=== PATIENT | male | born 1990 | race Caucasian/White ===

== ENCOUNTER 2016-04-11 10:21 | Emergency (ER) | payer MEDICARE, MEDICAID ==
[~2016-04-11] VITALS: Ht 172.7 cm; Wt 77.1 kg
[~2016-04-11 10:21] MED LIST: 'PARAFON FORTE500 M1 PO; ABILIFY15 MG PO; ALPRAZOLAM0.5 M3 PO; AMOXICILLIN500 MG PO; AMOXIL400 MG/5 M PO; AMOXIL500 MG PO; ANAPROX DS550 MG PO; AUGMENTIN 875 M1 TAB PO; AUGMENTIN 875875 MG PO; BACTRIM DS 8001 TA1 PO; BENADRYL50 MG PO; BENTYL20 MG PO; BUSPAR10 MG PO; BUSPAR15 MG PO; CARAFATE1 GM/10 ML PO; CIPROFLOXACIN500 MG PO; CLARITIN; CLARITIN-D 12HR1 T12 PO; CLARITIN10 MG PO; CLINDAMYCIN HC300 MG PO; COGENTIN2 MG PO; CYCLOBENZAPRINE10 MG PO; DARVOCET N 1001 TAB PO; DAYPRO600 M1 PO; DIPHENHYDRAMINE; DOXYCYCLINE100 MG PO; GEODON; HYDROCODONE BIT1 T11 PO; KEFLEX500 MG PO; KETOROLAC10 MG PO; KLONOPIN1 MG PO; LATU40TA1 PO; LATUDA20 MG PO; LIDEX 0.05% CRE15 GM T; LOMOTIL 0.025 M1 TAB PO; MIDRIN (DURADR1 CAP PO; MOBIC; MOBIC15 MG; MOBIC15 MG PO; MOBIC7.5 MG PO; MOTRIN600 MG PO; MOTRIN800 MG PO; NAPROSYN500 MG PO; NEURONTIN300 MG PO; NORCO 325 MG-51 TAB PO; ORPHENADRINE E100 MG PO; PERCOCET 325 MG1 TA2 PO; PERIDEX118 ML MM; PREDNISONE20 M1 PO; PRILOSEC20 M1 PO; PRILOSEC20 M2 PO; PRILOSEC20 MG PO; PROTONIX40 MG PO; ROBAXIN750 MG PO; SEROQUEL100 MG PO; SEROQUEL300 MG PO; STOMACH PILL; TESSALON PERLE200 MG PO; TRAMADOL HCL50 MG PO; TRAZADONE HYDR100 MG PO; TYLENOL WITH CO1 TAB PO; Tobradex 0.3-0.15 ML OPH; ULTRAM50 MG PO; UNSURE OF MEDS; VIBRAMYCIN100 MG PO; VICODIN 5/500 505 MG PO; VOLTAREN50 M1 PO; WELLBUTRIN SR150 MG PO; Wellbutrin Xl150 MG PO; XANAX1 MG PO; ZANTAC150 MG PO; ZITHROMAX Z PA250 MG PO; ZYRTEC ALLERGY10 MG PO; Zofran4 MG PO
[2016-04-11 10:32] VITALS: BP 149/93
== END 2016-04-11 12:13 | disposition home or self-care (01) ==
LOC: ED 10:21
DX: S93.601A Unspecified sprain of right foot, initial encounter (principal); F17.200 Nicotine dependence, unspecified, uncomplicated; Z88.1 Allergy status to other antibiotic agents; Z88.6 Allergy status to analgesic agent; Z88.8 Allergy status to other drugs, medicaments and biological substances; Z79.899 Other long term (current) drug therapy; X58.XXXA Exposure to other specified factors, initial encounter; Y93.89 Activity, other specified; Y92.9 Unspecified place or not applicable; Y99.9 Unspecified external cause status

== ENCOUNTER 2016-07-09 23:08 | Emergency (ER) | payer MEDICARE, MEDICAID ==
[~2016-07-09] VITALS: Ht 175.2 cm; Wt 86.2 kg
[2016-07-09 23:42] VITALS: BP 146/76
[2016-07-10] MEDS ORDERED: ZYRTEC10 MG PO (00:36)
== END 2016-07-10 01:22 | disposition home or self-care (01) ==
LOC: ED 23:08
DX: J02.9 Acute pharyngitis, unspecified (principal); F17.200 Nicotine dependence, unspecified, uncomplicated; Z88.1 Allergy status to other antibiotic agents; Z88.8 Allergy status to other drugs, medicaments and biological substances; Z88.6 Allergy status to analgesic agent

== ENCOUNTER 2016-08-27 21:32 | Emergency (ER) | payer MEDICAID ==
[~2016-08-27] VITALS: Ht 175.2 cm; Wt 90.7 kg
[~2016-08-27 21:32] MED LIST changes: +ZYRTEC10 MG PO
[2016-08-27 21:52] VITALS: BP 135/82
== END 2016-08-27 22:54 | disposition home or self-care (01) ==
LOC: ED 21:32
DX: S06.0X0A Concussion without loss of consciousness, initial encounter (principal); F17.200 Nicotine dependence, unspecified, uncomplicated; Z88.6 Allergy status to analgesic agent; Z88.8 Allergy status to other drugs, medicaments and biological substances; W22.8XXA Striking against or struck by other objects, initial encounter; Y93.89 Activity, other specified; Y92.020 Kitchen in mobile home as the place of occurrence of the external cause; Y99.9 Unspecified external cause status

== ENCOUNTER 2016-11-17 08:07 | Emergency (ER) | payer SELFPAY ==
[~2016-11-17] VITALS: Wt 86.2 kg
[2016-11-17 08:19] VITALS: BP 123/80
[2016-11-17] MEDS ORDERED: NORCO 10-325 T1 EACH PO (11:16)
== END 2016-11-17 11:37 | disposition home or self-care (01) ==
LOC: ED 08:07
DX: S20.222A Contusion of left back wall of thorax, initial encounter (principal); M25.512 Pain in left shoulder; F17.200 Nicotine dependence, unspecified, uncomplicated; Z88.1 Allergy status to other antibiotic agents; Z88.6 Allergy status to analgesic agent; Z88.8 Allergy status to other drugs, medicaments and biological substances; W20.8XXA Other cause of strike by thrown, projected or falling object, initial encounter; Y93.89 Activity, other specified; Y92.89 Other specified places as the place of occurrence of the external cause; Y99.8 Other external cause status

== ENCOUNTER 2017-01-30 19:03 | Emergency (ER) | payer SELFPAY ==
[~2017-01-30] VITALS: Ht 175.2 cm; Wt 90.7 kg
[~2017-01-30 19:03] MED LIST changes: +NORCO 10-325 T1 EACH PO
[2017-01-30 19:08] VITALS: BP 128/84
== END 2017-01-30 20:51 | disposition home or self-care (01) ==
LOC: ED 19:03
DX: S49.81XA Other specified injuries of right shoulder and upper arm, initial encounter (principal); F17.200 Nicotine dependence, unspecified, uncomplicated; Z88.8 Allergy status to other drugs, medicaments and biological substances; Z88.5 Allergy status to narcotic agent; Z79.899 Other long term (current) drug therapy; W19.XXXA Unspecified fall, initial encounter; Y93.89 Activity, other specified; Y92.89 Other specified places as the place of occurrence of the external cause; Y99.8 Other external cause status

== ENCOUNTER 2017-02-07 19:10 | Emergency (ER) | payer SELFPAY ==
[~2017-02-07] VITALS: Ht 175.2 cm; Wt 88.5 kg
[2017-02-07 19:18] VITALS: BP 144/98
== END 2017-02-07 20:51 | disposition left against medical advice (07) ==
LOC: ED 19:10
DX: R07.89 Other chest pain (principal); M54.5 Low back pain; F17.200 Nicotine dependence, unspecified, uncomplicated; Z98.890 Other specified postprocedural states; Z88.8 Allergy status to other drugs, medicaments and biological substances; Z88.1 Allergy status to other antibiotic agents; Z88.6 Allergy status to analgesic agent

== ENCOUNTER 2017-06-27 14:41 | Emergency (ER) | payer OTHER ==
[~2017-06-27] VITALS: Ht 175.2 cm; Wt 90.7 kg
[2017-06-27 14:45] VITALS: BP 133/76
[2017-06-27] MEDS ORDERED: AMOXICILLIN500 M2 PO (14:58)
== END 2017-06-27 16:21 | disposition home or self-care (01) ==
LOC: ED 14:41
DX: K08.89 Other specified disorders of teeth and supporting structures (principal); K02.9 Dental caries, unspecified; Z79.899 Other long term (current) drug therapy; Z98.890 Other specified postprocedural states; Z88.5 Allergy status to narcotic agent; Z88.8 Allergy status to other drugs, medicaments and biological substances; Z88.6 Allergy status to analgesic agent; Z88.1 Allergy status to other antibiotic agents

== ENCOUNTER 2017-07-12 11:50 | Emergency (ER) | payer OTHER ==
[~2017-07-12] VITALS: Ht 175.2 cm; Wt 90.7 kg
[~2017-07-12 11:50] MED LIST changes: +AMOXICILLIN500 M2 PO
[2017-07-12 11:52] VITALS: BP 129/82
[2017-07-12] MEDS ORDERED: CLINDAMYCIN HC300 MG PO (12:05)
== END 2017-07-12 12:34 | disposition home or self-care (01) ==
LOC: ED 11:50
DX: K08.89 Other specified disorders of teeth and supporting structures (principal); K02.9 Dental caries, unspecified; Z98.890 Other specified postprocedural states; Z88.1 Allergy status to other antibiotic agents; Z88.6 Allergy status to analgesic agent; Z88.8 Allergy status to other drugs, medicaments and biological substances

== ENCOUNTER → 2017-07-26 | Outpatient (CLI) | payer OTHER ==
[2017-07-26 11:27] LABS: HEMATOCRIT 48.1 % (42.0-52.0); HEMOGLOBIN 16.4 g/dl (14.0-18.0); MEAN CELL VOLUME 88.4 fl (80.0-94.0); MEAN CORPUSCULAR HGB 30.1 pg (27.0-31.0); MEAN CORPUSCULAR HGB CONC 34.1 g/dl (33.0-37.0); RED BLOOD COUNT 5.44 10*6/uL (4.50-5.90); RED CELL DISTRI WIDTH 12.8 % (0-14.5); WHITE BLOOD COUNT 7.8 10*3/uL (4.8-10.8)
[2017-07-26 11:50] LABS: ALBUMIN 4.2 gm/dl (3.1-4.5); ALKALINE PHOSPHATASE 72 U/L (45-117); BUN 10 mg/dl (7-24); CHLORIDE 108 mmol/L (98-107); CHOLESTEROL 162 mg/dL (<200); CREATININE 0.81 mg/dL (0.70-1.30); HDL CHOLESTEROL 29 mg/dl (40-60); LDL CHOLESTEROL 77 mg/dL (9-159); POTASSIUM 4.5 mmol/L (3.5-5.1); SGOT/AST 22 IU/L (3-35); SGPT/ALT 30 U/L (12-78); SODIUM 141 mmol/L (136-145); TOTAL PROTEIN 7.8 gm/dL (6.4-8.2); TRIGLYCERIDES 279 mg/dl (<150); VLDL CHOLESTEROL 56 mg/dL (6-40)
== END | disposition home or self-care (01) ==
LOC: LAB 10:43
PROVIDERS: Registered Nurse Flight
DX: Z13.220 Encounter for screening for lipoid disorders (principal); M25.561 Pain in right knee; K21.9 Gastro-esophageal reflux disease without esophagitis

== ENCOUNTER → 2018-02-18 | Outpatient (CLI) | payer OTHER | END | disposition home or self-care (01) | LOC: US 11:00 | DX: R10.11 Right upper quadrant pain (principal) ==

== ENCOUNTER 2018-03-22 11:22 | Emergency (ER) | payer OTHER ==
[~2018-03-22] VITALS: Ht 175.2 cm; Wt 96.2 kg
[2018-03-22 11:23] VITALS: BP 146/95
[2018-03-22] MEDS ORDERED: PRILOSEC20 M1 PO (11:26)
[2018-03-22] MEDS ORDERED: HORIZANT600 M1 PO (11:26)
[2018-03-22] MEDS ORDERED: BENTYL PO (11:27)
== END 2018-03-22 13:13 | disposition home or self-care (01) ==
LOC: ED 11:22
DX: S93.401A Sprain of unspecified ligament of right ankle, initial encounter (principal); S83.91XA Sprain of unspecified site of right knee, initial encounter; R03.0 Elevated blood-pressure reading, without diagnosis of hypertension; Z88.8 Allergy status to other drugs, medicaments and biological substances; Z88.6 Allergy status to analgesic agent; Z79.899 Other long term (current) drug therapy; X50.1XXA Overexertion from prolonged static or awkward postures, initial encounter; Y93.89 Activity, other specified; Y92.89 Other specified places as the place of occurrence of the external cause; Y99.8 Other external cause status

== ENCOUNTER 2018-04-30 19:42 | Emergency (ER) | payer OTHER ==
[~2018-04-30] VITALS: Ht 175.2 cm; Wt 97.1 kg
[~2018-04-30 19:42] MED LIST changes: +BENTYL PO; +HORIZANT600 M1 PO
[2018-04-30 19:45] VITALS: BP 133/90
[2018-04-30] MEDS ORDERED: CLINDAMYCIN150 MG PO (20:12)
== END 2018-04-30 20:43 | disposition home or self-care (01) ==
LOC: ED 19:42
DX: K02.9 Dental caries, unspecified (principal); Z79.899 Other long term (current) drug therapy; Z88.6 Allergy status to analgesic agent

== ENCOUNTER 2018-05-10 20:48 | Emergency (ER) | payer OTHER ==
[~2018-05-10] VITALS: Ht 175.2 cm; Wt 97.1 kg
[~2018-05-10 20:48] MED LIST changes: +CLINDAMYCIN150 MG PO
[2018-05-10 20:50] VITALS: BP 129/85
[2018-05-10] MEDS ORDERED: GABAPENTIN600 MG PO (20:56)
[2018-05-10] MEDS ORDERED: CLEOCIN150 MG PO (20:57)
[2018-05-10] MEDS ORDERED: ALPRAZOLAM0.5 M3 PO (20:58)
[2018-05-10] MEDS ORDERED: BUPROPION HCL150 M1 PO (20:59)
[2018-05-10] MEDS ORDERED: PROAIR HFA8.5 GM INH (20:59)
[2018-05-10] MEDS ORDERED: AMOXICILLIN500 M2 PO (21:47)
[2018-05-10] MEDS ORDERED: FLONASE ALLERG9.9 ML NAS (21:47)
[2018-05-10] MEDS ORDERED: TESSALON PERLE100 M1 PO (21:47)
== END 2018-05-10 21:55 | disposition home or self-care (01) ==
LOC: ED 20:48
DX: J32.9 Chronic sinusitis, unspecified (principal); F17.200 Nicotine dependence, unspecified, uncomplicated; Z88.8 Allergy status to other drugs, medicaments and biological substances; Z88.6 Allergy status to analgesic agent; Z79.2 Long term (current) use of antibiotics; Z79.899 Other long term (current) drug therapy

== ENCOUNTER 2018-05-19 12:33 | Emergency (ER) | payer OTHER ==
[~2018-05-19] VITALS: Ht 175.2 cm; Wt 99.3 kg
[~2018-05-19 12:33] MED LIST changes: +BUPROPION HCL150 M1 PO; +CLEOCIN150 MG PO; +FLONASE ALLERG9.9 ML NAS; +GABAPENTIN600 MG PO; +PROAIR HFA8.5 GM INH; +TESSALON PERLE100 M1 PO
[2018-05-19 12:36] VITALS: BP 133/83
[2018-05-19] MEDS ORDERED: Motrin,Rufen800 MG PO (14:31)
== END 2018-05-19 14:52 | disposition home or self-care (01) ==
LOC: ED 12:33
DX: S16.1XXA Strain of muscle, fascia and tendon at neck level, initial encounter (principal); S00.83XA Contusion of other part of head, initial encounter; Z88.1 Allergy status to other antibiotic agents; Z88.6 Allergy status to analgesic agent; Z88.8 Allergy status to other drugs, medicaments and biological substances; Z79.899 Other long term (current) drug therapy; W20.8XXA Other cause of strike by thrown, projected or falling object, initial encounter; Y93.89 Activity, other specified; Y92.89 Other specified places as the place of occurrence of the external cause; Y99.8 Other external cause status

== ENCOUNTER 2018-05-27 10:44 | Emergency (ER) | payer OTHER ==
[~2018-05-27] VITALS: Ht 175.2 cm; Wt 94.8 kg
[~2018-05-27 10:44] MED LIST changes: +Motrin,Rufen800 MG PO
[2018-05-27 11:25] LABS: BASO % 0.4 % (0.0-1.0); EOS # 0.1 10*3/uL (0.0-0.4); EOS % 1.4 % (1.0-4.0); HEMATOCRIT 53.4 % (42.0-52.0); HEMOGLOBIN 18.7 g/dl (14.0-18.0); LYMPH # 0.9 10*3/uL (1.3-4.4); LYMPH % 8.9 % (27.0-41.0); MEAN CELL VOLUME 88.3 fl (80.0-94.0); MEAN CORPUSCULAR HGB 30.9 pg (27.0-31.0); MONO # 0.7 10*3/uL (0.1-1.0); MONO % 7.1 % (3.0-9.0); NEUT # 8.4 10*3/uL (2.3-7.9); NEUT % 81.7 % (47.0-73.0); PLATELET COUNT AUTOMATED 173 10*3/uL (130-400); RED BLOOD COUNT 6.05 10*6/uL (4.50-5.90); RED CELL DISTRI WIDTH 12.4 % (0-14.5); WHITE BLOOD COUNT 10.2 10*3/uL (4.8-10.8)
[2018-05-27 11:49] LABS: ALBUMIN 4.2 gm/dl (3.1-4.5); ALKALINE PHOSPHATASE 113 U/L (45-117); BUN 17 mg/dl (7-24); CHLORIDE 106 mmol/L (98-107); CREATININE 0.99 mg/dL (0.70-1.30); LIPASE 157 U/L (73-393); POTASSIUM 4.5 mmol/L (3.5-5.1); SGOT/AST 13 IU/L (3-35); SGPT/ALT 31 U/L (12-78); SODIUM 141 mmol/L (136-145); TOTAL PROTEIN 8.5 gm/dL (6.4-8.2)
[2018-05-27 12:50] LABS: BILIRUBIN NEGATIVE (NEGATIVE); BLOOD NEGATIVE (NEGATIVE); CLARITY CLEAR (CLEAR); COLOR YELLOW (YELLOW); GLUCOSE NEGATIVE (NEGATIVE); KETONE NEGATIVE (NEGATIVE); LEUKO ESTERASE NEGATIVE (NEGATIVE); NITRITE NEGATIVE (NEGATIVE); SPECIFIC GRAVITY 1.015 (1.005-1.030); UROBILINOGEN 0.2 E.U./dl (0.2-1.0)
[2018-05-27 13:00] VITALS: BP 122/76
[2018-05-27 13:24] LABS: MUCOUS 1+
[2018-05-27] MEDS ORDERED: ZOFRAN4 MG PO (13:33)
== END 2018-05-27 13:45 | disposition home or self-care (01) ==
LOC: ED 10:44
PROVIDERS: Nurse Practitioner Family
DX: K29.70 Gastritis, unspecified, without bleeding (principal); Z88.8 Allergy status to other drugs, medicaments and biological substances; Z88.6 Allergy status to analgesic agent; Z79.2 Long term (current) use of antibiotics; Z79.899 Other long term (current) drug therapy

== ENCOUNTER 2018-06-27 12:06 | Emergency (ER) | payer OTHER ==
[~2018-06-27] VITALS: Ht 175.2 cm; Wt 95.3 kg
[~2018-06-27 12:06] MED LIST changes: +ZOFRAN4 MG PO
[2018-06-27 12:07] VITALS: BP 118/83
[2018-06-27] MEDS ORDERED: NAPROSYN500 MG PO (14:02)
== END 2018-06-27 14:10 | disposition home or self-care (01) ==
LOC: ED 12:06
DX: S92.331A Displaced fracture of third metatarsal bone, right foot, initial encounter for closed fracture (principal); S92.341A Displaced fracture of fourth metatarsal bone, right foot, initial encounter for closed fracture; F17.200 Nicotine dependence, unspecified, uncomplicated; Z88.8 Allergy status to other drugs, medicaments and biological substances; Z88.6 Allergy status to analgesic agent; Z79.2 Long term (current) use of antibiotics; Z79.899 Other long term (current) drug therapy; W07.XXXA Fall from chair, initial encounter; Y93.89 Activity, other specified; Y92.89 Other specified places as the place of occurrence of the external cause; Y99.8 Other external cause status

== ENCOUNTER 2018-07-10 11:04 | Emergency (ER) | payer OTHER ==
[~2018-07-10] VITALS: Ht 175.2 cm; Wt 90.7 kg
[2018-07-10 11:05] VITALS: BP 141/89
[2018-07-10] MEDS ORDERED: ZYRTEC10 MG PO (11:57)
[2018-07-10] MEDS ORDERED: PREDNISONE50 MG PO (11:57)
[2018-07-10] MEDS ORDERED: FLONASE ALLERG9.9 ML NAS (11:57)
== END 2018-07-10 12:10 | disposition home or self-care (01) ==
LOC: ED 11:04
DX: J06.9 Acute upper respiratory infection, unspecified (principal); J02.9 Acute pharyngitis, unspecified; H92.03 Otalgia, bilateral; F17.200 Nicotine dependence, unspecified, uncomplicated; Z88.8 Allergy status to other drugs, medicaments and biological substances; Z88.6 Allergy status to analgesic agent; Z79.899 Other long term (current) drug therapy; Z79.2 Long term (current) use of antibiotics

== ENCOUNTER → 2018-11-04 | Outpatient (CLI) | payer OTHER ==
[~2018-11-04] MED LIST changes: +PREDNISONE50 MG PO
[2018-11-04 09:13] LABS: HEMATOCRIT 47.3 % (42.0-52.0); MEAN CELL VOLUME 89.8 fl (80.0-94.0); MEAN CORPUSCULAR HGB 30.4 pg (27.0-31.0); MEAN CORPUSCULAR HGB CONC 33.8 g/dl (33.0-37.0); MEAN PLATELET VOLUME 9.5 fl (9.6-12.3); RED BLOOD COUNT 5.27 10*6/uL (4.50-5.90); RED CELL DISTRI WIDTH 12.7 % (0-14.5); WHITE BLOOD COUNT 8.6 10*3/uL (4.8-10.8)
[2018-11-04 09:42] LABS: CHLORIDE 112 mmol/L (98-107); POTASSIUM 4.8 mmol/L (3.5-5.1); SODIUM 144 mmol/L (136-145)
[2018-11-04 09:59] LABS: ALBUMIN 3.9 gm/dl (3.1-4.5); ALKALINE PHOSPHATASE 105 U/L (45-117); BUN 14 mg/dl (7-24); CREATININE 0.77 mg/dL (0.70-1.30); SGOT/AST 17 IU/L (3-35); SGPT/ALT 28 U/L (12-78); TOTAL PROTEIN 7.4 gm/dL (6.4-8.2)
== END | disposition home or self-care (01) ==
LOC: LAB 08:36
PROVIDERS: Registered Nurse Flight
DX: G62.9 Polyneuropathy, unspecified (principal)

== ENCOUNTER 2019-04-10 19:11 | Emergency (ER) | payer OTHER ==
[~2019-04-10] VITALS: Ht 175.2 cm; Wt 90.7 kg
[2019-04-10 19:24] VITALS: BP 113/83
[2019-04-10] MEDS ORDERED: OMEPRAZOLE MAGN20 MG PO (21:28)
[2019-04-10] MEDS ORDERED: GABAPENTIN800 MG PO (21:28)
[2019-04-10] MEDS ORDERED: DICYCLOMINE HCL20 MG PO (21:29)
== END 2019-04-10 23:37 | disposition left against medical advice (07) ==
LOC: ED 19:11
DX: R50.9 Fever, unspecified (principal); R19.7 Diarrhea, unspecified; R10.9 Unspecified abdominal pain; Z53.29 Procedure and treatment not carried out because of patient's decision for other reasons; Z88.8 Allergy status to other drugs, medicaments and biological substances; Z88.6 Allergy status to analgesic agent; Z79.899 Other long term (current) drug therapy

== ENCOUNTER 2019-05-14 21:09 | Emergency (ER) | payer OTHER ==
[~2019-05-14] VITALS: Ht 175.2 cm; Wt 9.5 kg
[~2019-05-14 21:09] MED LIST changes: +DICYCLOMINE HCL20 MG PO; +GABAPENTIN800 MG PO; +OMEPRAZOLE MAGN20 MG PO
[2019-05-14 21:11] VITALS: BP 132/75
== END 2019-05-14 21:42 | disposition home or self-care (01) ==
LOC: ED 21:09
DX: S00.93XA Contusion of unspecified part of head, initial encounter (principal); S00.01XA Abrasion of scalp, initial encounter; R42 Dizziness and giddiness; K21.9 Gastro-esophageal reflux disease without esophagitis; J45.909 Unspecified asthma, uncomplicated; Z88.8 Allergy status to other drugs, medicaments and biological substances; Z79.899 Other long term (current) drug therapy; V48.5XXA Car driver injured in noncollision transport accident in traffic accident, initial encounter; Y93.I9 Activity, other involving external motion; Y92.488 Other paved roadways as the place of occurrence of the external cause; Y99.8 Other external cause status

== ENCOUNTER 2020-02-20 07:29 | Emergency (ER) | payer OTHER ==
[~2020-02-20] VITALS: Ht 175.2 cm; Wt 68.0 kg
[2020-02-20 07:59] LABS: BASO # 0.1 10*3/uL (0.0-0.1); BASO % 0.4 % (0.0-1.0); EOS # 0.1 10*3/uL (0.0-0.4); EOS % 0.4 % (1.0-4.0); HEMATOCRIT 51.8 % (42.0-52.0); LYMPH # 2.4 10*3/uL (1.3-4.4); LYMPH % 17.2 % (27.0-41.0); MEAN CELL VOLUME 91.2 fl (80.0-94.0); MEAN CORPUSCULAR HGB 29.4 pg (27.0-31.0); MEAN CORPUSCULAR HGB CONC 32.2 g/dl (33.0-37.0); MEAN PLATELET VOLUME 9.8 fl (9.6-12.3); MONO # 0.6 10*3/uL (0.1-1.0); MONO % 4.1 % (3.0-9.0); NEUT # 10.6 10*3/uL (2.3-7.9); NEUT % 77.2 % (47.0-73.0); PLATELET COUNT AUTOMATED 201 10*3/uL (130-400); RED BLOOD COUNT 5.68 10*6/uL (4.50-5.90); RED CELL DISTRI WIDTH 12.7 % (0-14.5); WHITE BLOOD COUNT 13.7 10*3/uL (4.8-10.8)
[2020-02-20 08:23] VITALS: BP 120/60
[2020-02-20 08:35] LABS: URINE AMPHETAMINES < 1000 (1000ng/ml); URINE BARBITURATES < 200 (200ng/ml); URINE BENZODIAZEPINES > 200 (200ng/ml); URINE CANNABINOIDS (THC) > 50 (50ng/ml); URINE COCAINE < 300 (300ng/ml); URINE METHADONE < 300 (300ng/ml); URINE OPIATES < 300 (300ng/ml)
[2020-02-20 08:39] LABS: URINE PHENCYCLIDINE < 25 (25ng/ml)
[2020-02-20 09:26] LABS: ALBUMIN 3.9 gm/dl (3.1-4.5); ALKALINE PHOSPHATASE 83 U/L (45-117); BUN 10 mg/dl (7-24); CHLORIDE 113 mmol/L (98-107); CREATININE 1.05 mg/dL (0.70-1.30); POTASSIUM 3.7 mmol/L (3.5-5.1); SGOT/AST 17 IU/L (3-35); SGPT/ALT 27 U/L (12-78); SODIUM 146 mmol/L (136-145); TOTAL PROTEIN 7.1 gm/dL (6.4-8.2)
[2020-02-20 09:30] LABS: ETHYL ALCOHOL < 3.0 mg/dl (<3)
== END 2020-02-20 09:08 | disposition short-term general hospital (02) ==
LOC: ED 07:29
PROVIDERS: Emergency Medicine
DX: T65.91XA Toxic effect of unspecified substance, accidental (unintentional), initial encounter (principal); Z88.8 Allergy status to other drugs, medicaments and biological substances; Z79.899 Other long term (current) drug therapy; Y92.89 Other specified places as the place of occurrence of the external cause

== ENCOUNTER 2020-09-25 10:07 | Emergency (ER) | payer OTHER ==
[~2020-09-25] VITALS: Ht 175 cm; Wt 97.5 kg
[2020-09-25 10:13] VITALS: BP 136/90
[2020-09-25] MEDS ORDERED: CYCLOBENZAPRINE10 MG PO (10:56)
[2020-09-25] MEDS ORDERED: TYLENOL325 M1 PO (10:56)
[2020-09-25] MEDS ORDERED: ARTHRITIS PAI42.5 GM T (10:56)
== END 2020-09-25 10:58 | disposition home or self-care (01) ==
LOC: ED 10:07
DX: S39.012A Strain of muscle, fascia and tendon of lower back, initial encounter (principal); R10.12 Left upper quadrant pain; F41.9 Anxiety disorder, unspecified; F32.9 Major depressive disorder, single episode, unspecified; J45.909 Unspecified asthma, uncomplicated; K21.9 Gastro-esophageal reflux disease without esophagitis; Z88.8 Allergy status to other drugs, medicaments and biological substances; Z79.899 Other long term (current) drug therapy; Z98.890 Other specified postprocedural states; X58.XXXA Exposure to other specified factors, initial encounter; Y93.89 Activity, other specified; Y92.89 Other specified places as the place of occurrence of the external cause; Y99.8 Other external cause status

== ENCOUNTER 2020-11-29 17:57 | Emergency (ER) | payer OTHER ==
[~2020-11-29] VITALS: Ht 175.2 cm; Wt 97.5 kg
[~2020-11-29 17:57] MED LIST changes: +ARTHRITIS PAI42.5 GM T; +TYLENOL325 M1 PO
[2020-11-29 18:17] VITALS: BP 133/89
[2020-11-29] MEDS ORDERED: KENALOG 0.025%15 GM T (20:01)
== END 2020-11-29 20:04 | disposition home or self-care (01) ==
LOC: ED 17:57
DX: L25.9 Unspecified contact dermatitis, unspecified cause (principal); F17.200 Nicotine dependence, unspecified, uncomplicated; Z88.8 Allergy status to other drugs, medicaments and biological substances; Z88.6 Allergy status to analgesic agent; Z79.899 Other long term (current) drug therapy; Z79.2 Long term (current) use of antibiotics

== ENCOUNTER 2021-01-08 12:40 | Emergency (ER) | payer OTHER ==
[~2021-01-08] VITALS: Ht 175.2 cm; Wt 97.5 kg
[~2021-01-08 12:40] MED LIST changes: +KENALOG 0.025%15 GM T
[2021-01-08 13:08] VITALS: BP 136/97
== END 2021-01-08 14:20 | disposition left against medical advice (07) ==
LOC: ED 12:40
DX: M79.671 Pain in right foot (principal); Z53.21 Procedure and treatment not carried out due to patient leaving prior to being seen by health care provider

== ENCOUNTER 2021-02-27 10:36 | Emergency (ER) | payer OTHER ==
[~2021-02-27] VITALS: Ht 175.2 cm; Wt 95.3 kg
[2021-02-27 10:56] VITALS: BP 129/89
[2021-02-27] MEDS ORDERED: MEDROL DOSEPAK4 MG PO (13:07)
== END 2021-02-27 13:25 | disposition home or self-care (01) ==
LOC: ED 10:36
DX: S20.221A Contusion of right back wall of thorax, initial encounter (principal); Z88.6 Allergy status to analgesic agent; Z79.899 Other long term (current) drug therapy; W22.8XXA Striking against or struck by other objects, initial encounter; Y93.89 Activity, other specified; Y92.89 Other specified places as the place of occurrence of the external cause; Y99.8 Other external cause status

== ENCOUNTER 2021-05-19 07:45 | Emergency (ER) | payer OTHER ==
[~2021-05-19] VITALS: Wt 95.3 kg
[~2021-05-19 07:45] MED LIST changes: +MEDROL DOSEPAK4 MG PO
[2021-05-19 07:55] VITALS: BP 144/102
[2021-05-19] MEDS ORDERED: GENTACIDIN5 ML NAS (08:22)
[2021-05-19] MEDS ORDERED: TERBINAFINE15 GM T (08:24)
== END 2021-05-19 09:02 | disposition home or self-care (01) ==
LOC: ED 07:45
DX: H10.32 Unspecified acute conjunctivitis, left eye (principal); B35.4 Tinea corporis; Z88.1 Allergy status to other antibiotic agents; Z88.8 Allergy status to other drugs, medicaments and biological substances; Z88.6 Allergy status to analgesic agent; Z79.899 Other long term (current) drug therapy; Z98.890 Other specified postprocedural states

== ENCOUNTER 2021-09-09 19:55 | Emergency (ER) | payer OTHER ==
[~2021-09-09] VITALS: Wt 90.7 kg
[~2021-09-09 19:55] MED LIST changes: +GENTACIDIN5 ML NAS; +TERBINAFINE15 GM T
[2021-09-09 20:43] VITALS: BP 133/84
== END 2021-09-09 22:37 | disposition home or self-care (01) ==
LOC: ED 19:55
DX: T50.901A Poisoning by unspecified drugs, medicaments and biological substances, accidental (unintentional), initial encounter (principal); Y92.89 Other specified places as the place of occurrence of the external cause

== ENCOUNTER 2021-12-24 13:48 | Emergency (ER) | payer OTHER ==
[~2021-12-24] VITALS: Ht 175.2 cm; Wt 86.2 kg
[2021-12-24 13:55] VITALS: BP 127/64
[2021-12-24 14:42] LABS: BASO # 0.1 10*3/uL (0.0-0.1); BASO % 0.8 % (0.0-1.0); EOS # 0.1 10*3/uL (0.0-0.4); EOS % 1.5 % (1.0-4.0); HEMATOCRIT 43.8 % (42.0-52.0); LYMPH # 2.2 10*3/uL (1.3-4.4); LYMPH % 26.9 % (27.0-41.0); MEAN CORPUSCULAR HGB 30.9 pg (27.0-31.0); MEAN CORPUSCULAR HGB CONC 34.7 g/dl (33.0-37.0); MEAN PLATELET VOLUME 9.6 fl (9.6-12.3); MONO # 0.5 10*3/uL (0.1-1.0); MONO % 5.9 % (3.0-9.0); NEUT # 5.2 10*3/uL (2.3-7.9); NEUT % 64.6 % (47.0-73.0); PLATELET COUNT AUTOMATED 182 10*3/uL (130-400); RED BLOOD COUNT 4.92 10*6/uL (4.50-5.90)
[2021-12-24 14:46] LABS: ALKALINE PHOSPHATASE 88 U/L (45-117); BUN 12 mg/dl (7-24); CHLORIDE 109 mmol/L (98-107); CREATININE 0.88 mg/dL (0.70-1.30); POTASSIUM 4.2 mmol/L (3.5-5.1); SGOT/AST 14 IU/L (3-35); SGPT/ALT 31 U/L (12-78); SODIUM 140 mmol/L (136-145); TOTAL PROTEIN 6.9 gm/dL (6.4-8.2)
[2021-12-24] MEDS ORDERED: DOXYCYCLINE HY100 M3 PO (15:12)
== END 2021-12-24 15:17 | disposition home or self-care (01) ==
LOC: ED 13:48
PROVIDERS: Nurse Practitioner Family
DX: L03.116 Cellulitis of left lower limb (principal); F17.200 Nicotine dependence, unspecified, uncomplicated; Z98.890 Other specified postprocedural states; Z90.89 Acquired absence of other organs; Z79.899 Other long term (current) drug therapy; Z88.8 Allergy status to other drugs, medicaments and biological substances; Z88.1 Allergy status to other antibiotic agents

== ENCOUNTER 2022-02-03 11:40 | Emergency (ER) | payer OTHER ==
[~2022-02-03] VITALS: Ht 175.2 cm; Wt 89.8 kg
[~2022-02-03 11:40] MED LIST changes: +DOXYCYCLINE HY100 M3 PO
[2022-02-03 11:46] VITALS: BP 140/96
== END 2022-02-03 13:38 | disposition home or self-care (01) ==
LOC: ED 11:40
DX: S05.02XA Injury of conjunctiva and corneal abrasion without foreign body, left eye, initial encounter (principal); Z88.8 Allergy status to other drugs, medicaments and biological substances; Z88.6 Allergy status to analgesic agent; Z79.899 Other long term (current) drug therapy; Z90.89 Acquired absence of other organs; Z98.890 Other specified postprocedural states; W22.8XXA Striking against or struck by other objects, initial encounter; Y93.89 Activity, other specified; Y92.89 Other specified places as the place of occurrence of the external cause; Y99.8 Other external cause status

== ENCOUNTER 2022-02-21 19:06 | Emergency (ER) | payer OTHER ==
[~2022-02-21] VITALS: Ht 175.2 cm; Wt 89.8 kg
[2022-02-21 19:18] VITALS: BP 130/96
== END 2022-02-21 20:22 | disposition home or self-care (01) ==
LOC: ED 19:06
DX: Z53.21 Procedure and treatment not carried out due to patient leaving prior to being seen by health care provider (principal)

== ENCOUNTER → 2022-05-09 | Outpatient (CLI) | payer OTHER | END | disposition home or self-care (01) | LOC: CT 10:59 | PROVIDERS: ATTEND Podiatrist Foot & Ankle Surgery | DX: S93.324A Dislocation of tarsometatarsal joint of right foot, initial encounter (principal); M19.071 Primary osteoarthritis, right ankle and foot; Z98.890 Other specified postprocedural states; X58.XXXA Exposure to other specified factors, initial encounter; Y93.89 Activity, other specified; Y92.89 Other specified places as the place of occurrence of the external cause; Y99.8 Other external cause status ==

== ENCOUNTER → 2022-08-30 | Day surgery (SDC) | payer OTHER ==
[2022-08-25 12:59] VITALS: BP 133/84
[~2022-08-30] VITALS: Ht 152.4 cm; Wt 99.8 kg
[~2022-08-30] MED LIST changes: +DOXYCYCLINE HY150 M2 PO; +NEURONTIN400 MG PO; +OXYCODON-ACETA1 EACH PO; +WELLBUTRIN XL150 MG PO; +XARELTO10 MG PO
[2022-08-30 07:45] VITALS: BP 140/76
[2022-08-30 10:05] VITALS: BP 131/101
[2022-08-30 10:20] VITALS: BP 132/90
[2022-08-30 10:35] VITALS: BP 127/82
[2022-08-30 10:50] VITALS: BP 122/75
[2022-08-30 11:05] VITALS: BP 125/72
[2022-08-31 11:08] LABS: ACID FAST SPEC PROCESSING Tissue Grinding (.)
[2022-08-31 11:08] LABS: ACID FAST SPEC PROCESSING Tissue Grinding (.)
== END ==
LOC: SDC 08-25 12:30
PROVIDERS: Podiatrist; ATTEND Podiatrist Foot & Ankle Surgery
DX: Z45.89 Encounter for adjustment and management of other implanted devices (principal); T84.84XA Pain due to internal orthopedic prosthetic devices, implants and grafts, initial encounter; G57.31 Lesion of lateral popliteal nerve, right lower limb; E66.9 Obesity, unspecified; F32.A Depression, unspecified; F41.9 Anxiety disorder, unspecified; K44.9 Diaphragmatic hernia without obstruction or gangrene; J45.909 Unspecified asthma, uncomplicated; F17.210 Nicotine dependence, cigarettes, uncomplicated; Z98.890 Other specified postprocedural states; Z96.698 Presence of other orthopedic joint implants; Z68.32 Body mass index [BMI] 32.0-32.9, adult; X58.XXXA Exposure to other specified factors, initial encounter

== ENCOUNTER → 2022-09-07 | Outpatient (CLI) | payer OTHER | END | disposition home or self-care (01) | LOC: US 09:00 | PROVIDERS: ATTEND Podiatrist Foot & Ankle Surgery | DX: I82.401 Acute embolism and thrombosis of unspecified deep veins of right lower extremity (principal); M79.89 Other specified soft tissue disorders ==

== ENCOUNTER → 2022-09-19 | Outpatient (CLI) | payer OTHER | LOC: WOUNDCARE 01:36 | PROVIDERS: ATTEND Nurse Practitioner Primary Care | DX: T81.89XA Other complications of procedures, not elsewhere classified, initial encounter (principal); L97.512 Non-pressure chronic ulcer of other part of right foot with fat layer exposed; M79.671 Pain in right foot; M86.671 Other chronic osteomyelitis, right ankle and foot; M86.171 Other acute osteomyelitis, right ankle and foot; F17.200 Nicotine dependence, unspecified, uncomplicated; Y92.238 Other place in hospital as the place of occurrence of the external cause; Y83.8 Other surgical procedures as the cause of abnormal reaction of the patient, or of later complication, without mention of misadventure at the time of the procedure ==

== ENCOUNTER → 2022-09-26 | Outpatient (CLI) | payer OTHER | END | disposition home or self-care (01) | LOC: WOUNDCARE 00:59 | PROVIDERS: ATTEND Nurse Practitioner Primary Care | DX: T81.89XD Other complications of procedures, not elsewhere classified, subsequent encounter (principal); L97.512 Non-pressure chronic ulcer of other part of right foot with fat layer exposed; M79.671 Pain in right foot; M86.671 Other chronic osteomyelitis, right ankle and foot; M86.171 Other acute osteomyelitis, right ankle and foot; F17.200 Nicotine dependence, unspecified, uncomplicated; Y83.8 Other surgical procedures as the cause of abnormal reaction of the patient, or of later complication, without mention of misadventure at the time of the procedure ==

== ENCOUNTER → 2022-10-05 | Outpatient (CLI) | payer OTHER | END | disposition home or self-care (01) | LOC: WOUNDCARE 02:11 | PROVIDERS: ATTEND Nurse Practitioner Family | DX: T81.89XD Other complications of procedures, not elsewhere classified, subsequent encounter (principal); L97.512 Non-pressure chronic ulcer of other part of right foot with fat layer exposed; M86.671 Other chronic osteomyelitis, right ankle and foot; M86.171 Other acute osteomyelitis, right ankle and foot; M79.671 Pain in right foot; F17.200 Nicotine dependence, unspecified, uncomplicated; Y83.8 Other surgical procedures as the cause of abnormal reaction of the patient, or of later complication, without mention of misadventure at the time of the procedure ==

== ENCOUNTER → 2022-10-11 | Outpatient (CLI) | payer OTHER | END | disposition home or self-care (01) | LOC: RAD 14:42 | PROVIDERS: ATTEND Nurse Practitioner Family | DX: M77.31 Calcaneal spur, right foot (principal) ==

== ENCOUNTER → 2022-10-12 | Outpatient (CLI) | payer OTHER | END | disposition home or self-care (01) | LOC: WOUNDCARE 00:45 | PROVIDERS: ATTEND Nurse Practitioner Family | DX: T81.89XD Other complications of procedures, not elsewhere classified, subsequent encounter (principal); L97.512 Non-pressure chronic ulcer of other part of right foot with fat layer exposed; M86.671 Other chronic osteomyelitis, right ankle and foot; M79.671 Pain in right foot; F17.200 Nicotine dependence, unspecified, uncomplicated; Y83.8 Other surgical procedures as the cause of abnormal reaction of the patient, or of later complication, without mention of misadventure at the time of the procedure ==

== ENCOUNTER → 2022-10-26 | Outpatient (CLI) | payer OTHER | END | disposition home or self-care (01) | LOC: WOUNDCARE 02:21 | PROVIDERS: ATTEND Nurse Practitioner Family | DX: T81.89XD Other complications of procedures, not elsewhere classified, subsequent encounter (principal); L97.512 Non-pressure chronic ulcer of other part of right foot with fat layer exposed; M86.671 Other chronic osteomyelitis, right ankle and foot; M86.171 Other acute osteomyelitis, right ankle and foot; M79.671 Pain in right foot; F17.200 Nicotine dependence, unspecified, uncomplicated; Y83.8 Other surgical procedures as the cause of abnormal reaction of the patient, or of later complication, without mention of misadventure at the time of the procedure ==

== ENCOUNTER → 2022-11-03 | Outpatient (CLI) | payer OTHER | END | disposition home or self-care (01) | LOC: WOUNDCARE 01:45 | PROVIDERS: ATTEND Nurse Practitioner Family | DX: T81.89XD Other complications of procedures, not elsewhere classified, subsequent encounter (principal); L97.512 Non-pressure chronic ulcer of other part of right foot with fat layer exposed; M86.671 Other chronic osteomyelitis, right ankle and foot; M86.171 Other acute osteomyelitis, right ankle and foot; M79.671 Pain in right foot; F17.200 Nicotine dependence, unspecified, uncomplicated; Y83.8 Other surgical procedures as the cause of abnormal reaction of the patient, or of later complication, without mention of misadventure at the time of the procedure ==

== ENCOUNTER → 2022-11-14 | Outpatient (CLI) | payer OTHER | END | disposition home or self-care (01) | LOC: WOUNDCARE 01:10 | PROVIDERS: ATTEND Nurse Practitioner Family | DX: T81.89XD Other complications of procedures, not elsewhere classified, subsequent encounter (principal); L97.512 Non-pressure chronic ulcer of other part of right foot with fat layer exposed; M86.671 Other chronic osteomyelitis, right ankle and foot; M86.171 Other acute osteomyelitis, right ankle and foot; M79.671 Pain in right foot; F17.200 Nicotine dependence, unspecified, uncomplicated; Y83.8 Other surgical procedures as the cause of abnormal reaction of the patient, or of later complication, without mention of misadventure at the time of the procedure ==

== ENCOUNTER 2023-01-29 17:44 | Emergency (ER) | payer OTHER ==
[~2023-01-29] VITALS: Wt 93.0 kg
[2023-01-29 18:18] VITALS: BP 119/81
[2023-01-29] MEDS ORDERED: CORTIZONE-10 PL28 GM T (19:03)
[2023-01-29] MEDS ORDERED: BENADRYL ALLERG25 M5 PO (19:03)
== END 2023-01-29 18:54 | disposition home or self-care (01) ==
LOC: ED 17:44
DX: L23.7 Allergic contact dermatitis due to plants, except food (principal); F41.9 Anxiety disorder, unspecified; J45.909 Unspecified asthma, uncomplicated; K21.9 Gastro-esophageal reflux disease without esophagitis; Z87.442 Personal history of urinary calculi; F31.9 Bipolar disorder, unspecified; Z88.8 Allergy status to other drugs, medicaments and biological substances; Z88.6 Allergy status to analgesic agent; Z98.890 Other specified postprocedural states

== ENCOUNTER 2023-10-28 11:49 | Emergency (ER) | payer OTHER ==
[~2023-10-28] VITALS: Ht 180.3 cm; Wt 88.5 kg
[~2023-10-28 11:49] MED LIST changes: +BENADRYL ALLERG25 M5 PO; +CORTIZONE-10 PL28 GM T
[2023-10-28 11:56] VITALS: BP 123/82
[2023-10-28] MEDS ORDERED: AMOX-CLAV 875-1 EACH PO (12:14)
[2023-10-28] MEDS ORDERED: Amoxicillin/Clavulanate Pota 875 MG TAB PO ONE (12:20)
== END 2023-10-28 12:50 | disposition home or self-care (01) ==
LOC: ED 11:49
DX: H66.93 Otitis media, unspecified, bilateral (principal); J02.9 Acute pharyngitis, unspecified; F41.9 Anxiety disorder, unspecified; J45.909 Unspecified asthma, uncomplicated; K21.9 Gastro-esophageal reflux disease without esophagitis; F31.9 Bipolar disorder, unspecified; Z87.442 Personal history of urinary calculi; Z88.8 Allergy status to other drugs, medicaments and biological substances; Z88.6 Allergy status to analgesic agent; Z98.890 Other specified postprocedural states

== ENCOUNTER 2024-03-20 16:31 | Emergency (ER) | payer OTHER ==
[~2024-03-20] VITALS: Ht 180.3 cm; Wt 99.8 kg
[~2024-03-20 16:31] MED LIST changes: +AMOX-CLAV 875-1 EACH PO
[2024-03-20 16:49] VITALS: BP 149/97
[2024-03-20] MEDS ORDERED: AMOXICILLIN 500 MG CAP PO ONE (16:55)
[2024-03-20] MEDS ORDERED: AMOXICILLIN500 M3 PO (16:57)
== END 2024-03-20 16:58 | disposition home or self-care (01) ==
LOC: ED 16:31
DX: H66.91 Otitis media, unspecified, right ear (principal); K21.9 Gastro-esophageal reflux disease without esophagitis; F41.9 Anxiety disorder, unspecified; J45.909 Unspecified asthma, uncomplicated; F31.9 Bipolar disorder, unspecified; Z87.442 Personal history of urinary calculi; Z88.8 Allergy status to other drugs, medicaments and biological substances; Z88.6 Allergy status to analgesic agent; Z88.5 Allergy status to narcotic agent; Z98.890 Other specified postprocedural states

== ENCOUNTER 2024-04-04 08:23 | Emergency (ER) | payer OTHER ==
[~2024-04-04] VITALS: Ht 180.3 cm; Wt 97.5 kg
[~2024-04-04 08:23] MED LIST changes: +AMOXICILLIN500 M3 PO
[2024-04-04 08:31] VITALS: BP 156/102
[2024-04-04] MEDS ORDERED: LEVOFLOXACIN750 M2 PO (09:37)
== END 2024-04-04 09:41 | disposition home or self-care (01) ==
LOC: ED 08:23
DX: J45.909 Unspecified asthma, uncomplicated (principal); Z20.822 Contact with and (suspected) exposure to COVID-19; H66.92 Otitis media, unspecified, left ear; F41.9 Anxiety disorder, unspecified; K21.9 Gastro-esophageal reflux disease without esophagitis; F31.9 Bipolar disorder, unspecified; F17.210 Nicotine dependence, cigarettes, uncomplicated; Z87.442 Personal history of urinary calculi; Z88.8 Allergy status to other drugs, medicaments and biological substances; Z88.6 Allergy status to analgesic agent; Z88.5 Allergy status to narcotic agent; Z98.890 Other specified postprocedural states

== ENCOUNTER 2024-08-30 07:56 | Emergency (ER) | payer OTHER ==
[~2024-08-30] VITALS: Ht 180.3 cm; Wt 97.5 kg
[~2024-08-30 07:56] MED LIST changes: +LEVOFLOXACIN750 M2 PO
[2024-08-30 08:05] VITALS: BP 163/115
[2024-08-30] MEDS ORDERED: VIBRAMYCIN100 MG PO (08:14)
[2024-08-30] MEDS ORDERED: Doxycycline Hyclate 100 MG CAPSULE PO ONE (08:15)
[2024-08-30] MEDS ORDERED: cefTRIAXone Sodium 500 MG VIAL IM ONE (08:15)
== END 2024-08-30 09:36 | disposition home or self-care (01) ==
LOC: ED 07:56
DX: Z20.2 Contact with and (suspected) exposure to infections with a predominantly sexual mode of transmission (principal); Z88.8 Allergy status to other drugs, medicaments and biological substances; Z88.6 Allergy status to analgesic agent; Z79.899 Other long term (current) drug therapy; Z98.890 Other specified postprocedural states